=== PATIENT | female | born 1995 | race Caucasian/White ===

== ENCOUNTER 2022-01-09 20:40 | Emergency (ER) | payer SELFPAY ==
[2022-01-09 23:02] LABS: ACETAMINOPHEN <2.0 ug/mL; BLOOD UREA NITROGEN,BUN 11 mg/dL (7.0-18.0); CHLORIDE,CL 101 mmol/L (98-107); GLUCOSE RANDOM 107 mg/dL (74-106); POTASSIUM,K 3.4 mmol/L (3.5-5.1); SODIUM,NA 139 mmol/L (136-145)
[2022-01-09 23:03] LABS: ESTIMATED GFR 71 mL/min (>60)
== END 2022-01-09 23:41 | disposition home or self-care (01) ==
LOC: MW.ED 20:40
DX: S06.0X0A Concussion without loss of consciousness, initial encounter (principal); Z88.0 Allergy status to penicillin; Z20.822 Contact with and (suspected) exposure to COVID-19; W22.8XXA Striking against or struck by other objects, initial encounter; Y99.0 Civilian activity done for income or pay
CPT/HCPCS: 36415; 70450; 70450-26; 80053; 80143; 80179; 80305-QW; 80307; 81001; 81025; 83735; 84443; 85025; 86140; 87086; 99284; U0002

== ENCOUNTER 2022-04-27 17:52 | Emergency (ER) | payer SELFPAY ==
[2022-04-27 19:14] LABS: ACETAMINOPHEN <2.0 ug/mL; BLOOD UREA NITROGEN,BUN 14 mg/dL (7.0-18.0); CARBON DIOXIDE,CO2 21.9 mmol/L (21.0-32.0); CHLORIDE,CL 102 mmol/L (98-107); GLUCOSE RANDOM 90 mg/dL (74-106); POTASSIUM,K 3.3 mmol/L (3.5-5.1); SODIUM,NA 137 mmol/L (136-145)
[2022-04-27 19:19] LABS: ESTIMATED GFR 104 mL/min (>60)
[2022-04-28] MEDS ORDERED: OLANZapine 5 MG Tab.DIS PO ONE (14:28)
[2022-04-29] MEDS ORDERED: OLANZapine 5 MG in Water For Injection, Sterile 2.1 ML IM ONE (06:56)
== END 2022-04-29 13:53 | disposition home or self-care (01) ==
LOC: MW.ED 17:52
DX: F99 Mental disorder, not otherwise specified (principal); Z88.0 Allergy status to penicillin; Z20.822 Contact with and (suspected) exposure to COVID-19
CPT/HCPCS: 36415; 80053; 80143; 80179; 80305; 80307; 81001; 83735; 84443; 84703; 85025; 87086; 87635; 93005; 96372; 99285; J3490; U0002